=== PATIENT | male | born 1960 | race American Indian/Alaskan Native ===

== ENCOUNTER 2018-03-31 13:23 | Emergency (ER) | payer OTHER ==
[2018-03-31] MEDS ORDERED: XYLOCAINE 1% 20 mL INFILTRATI ONE (13:49)
[2018-03-31] MEDS ORDERED: BOOSTRIX IM ONE (13:53)
[2018-03-31] MEDS ORDERED: NORCO 5/325 PO ONE (13:53)
[2018-03-31] MEDS ORDERED: NACL 0.9% 500 ML IR ONE (14:42)
[2018-03-31] MEDS ORDERED: XYLOCAINE 1%/ EPI 1:100,000 INFILTRATI ONE (15:21)
--- NOTE | 2018-03-31 15:44 | Emergency Department Report ---
- General Chief Complaint: Wound/Laceration Stated Complaint: LEFT ARM INJURY Time Seen by Provider: 03/31/18 13:49 Source: patient Mode of arrival: Ambulatory Limitations: No Limitations - History of Present Illness Initial Comments: Patient is a 58-year-old Male who is presenting with laceration. Patient was doing a project with his son using a Skil saw and the salt jerked backwards and his son's hand and the patient was behind him. The patient suffered a laceration to the left upper arm just proximal to the elbow on the lateral edge. Patient has 8 out of 10 pain stasis stinging burning pain in this area. Patient has not injuries at this time. - Related Data Previous Rx's Medication Instructions Recorded Last Taken Type Clindamycin [Clindamycin CAP] 300 mg PO Q8H 7 Days cap 03/31/18 Unknown Rx HYDROcodone/APAP 5-325 [[place] 1 each PO Q6HR PRN #15 tablet 03/31/18 Unknown Rx 5/325] Ibuprofen [Motrin] 800 mg PO Q8HR PRN #20 tablet 03/31/18 Unknown Rx Allergies Allergy/AdvReac Type Severity Reaction Status Date / Time No Known Allergies Allergy Unverified 03/31/18 13:25 ED Review of Systems ROS: Stated complaint: LEFT ARM INJURY Other details as noted in HPI Comment: All other systems reviewed and negative ED Past Medical Hx - Past Medical History Previous Medical History?: Yes Additional medical history: THYROID - Surgical History Hx Appendectomy: Yes - Social History Smoking Status: Never Smoker Substance Use Type: None - Medications Home Medications: Home Medications Medication Instructions Recorded Confirmed Last Taken Type Clindamycin [Clindamycin CAP] 300 mg PO Q8H 7 Days cap 03/31/18 Unknown Rx HYDROcodone/APAP 5-325 [[place] 1 each PO Q6HR PRN #15 tablet 03/31/18 Unknown Rx 5/325] Ibuprofen [Motrin] 800 mg PO Q8HR PRN #20 tablet 03/31/18 Unknown Rx ED Physical Exam - General Limitations: No Limitations General appearance: alert, in no apparent distress - Head Head exam: Present: atraumatic, normocephalic - Eye Eye exam: Present: normal appearance - ENT ENT exam: Present: mucous membranes moist - Neck Neck exam: Present: normal inspection - Respiratory Respiratory exam: Present: normal lung sounds bilaterally. Absent: respiratory distress - Cardiovascular Cardiovascular Exam: Present: regular rate, normal rhythm. Absent: systolic murmur, diastolic murmur, rubs, gallop - GI/Abdominal GI/Abdominal exam: Present: soft, normal bowel sounds - Rectal Rectal exam: Present: deferred - Extremities Exam Extremities exam: Present: normal inspection, other (patient has a 8 cm laceration on the lateral distal upper arm that is approximately 1 cm deep.) - Back Exam Back exam: Present: normal inspection - Neurological Exam Neurological exam: Present: alert, oriented X3 - Psychiatric Psychiatric exam: Present: normal affect, normal mood - Skin Skin exam: Present: warm, dry, intact, normal color. Absent: rash ED Course Vital Signs 03/31/18 03/31/18 03/31/18 13:26 13:28 13:37 Temperature 97.7 F Pulse Rate 87 Respiratory 20 Rate Blood Pressure 173/108 O2 Sat by Pulse 98 98 96 Oximetry 03/31/18 03/31/18 03/31/18 13:45 14:00 14:15 Temperature Pulse Rate Respiratory Rate Blood Pressure 129/97 136/97 134/100 O2 Sat by Pulse 97 98 98 Oximetry - Laceration /Wound Repair Left Upper Lateral Arm Wound Location: upper extremity Wound Length (cm): 8 Wound's Depth, Shape: irregular Wound Explored: clean Irrigated w/ Saline (ccs): 500 Betadine Prep?: Yes Anesthesia: Lidocaine w/ Epi Volume Anesthetic (ccs): 20 Wound Repaired With: sutures Suture Size/Type: 3:0, proline Number of Sutures: 15 Layer Closure?: No Sterile Dressing Applied?: Yes Critical care attestation.: If time is entered above; I have spent that time in minutes in the direct care of this critically ill patient, excluding procedure time. ED Disposition Clinical Impression: Laceration Disposition: DC-01 TO HOME OR SELFCARE Is pt being admited?: No Does the pt Need Aspirin: No Condition: Stable Instructions: Suture Care (ED), Laceration (ED) Additional Instructions: His sutures should be removed in 7-10 days. Please avoid peroxide. Please keep a thin layer of Neosporin or your wound at all times. Please clean with soap and water. Referrals: PRIMARY CARE, [Primary Care Provider] - 3-5 Days
[2018-03-31 16:05] VITALS: BP 134/94
== END 2018-03-31 16:21 | disposition home or self-care (01) ==
LOC: ED 13:23
DX: S41.112A Laceration without foreign body of left upper arm, initial encounter (principal); X58.XXXA Exposure to other specified factors, initial encounter; Y93.89 Activity, other specified; Y92.89 Other specified places as the place of occurrence of the external cause; Y99.8 Other external cause status
CPT/HCPCS: 90471; 90715; 99282

== ENCOUNTER 2018-04-09 16:51 | Emergency (ER) | payer OTHER ==
[2018-04-09 16:57] VITALS: BP 139/92
--- NOTE | 2018-04-09 17:25 | Emergency Department Report ---
Suture/Staple Removal - HPI Chief Complaint: Laceration/Recheck/Suture Stated Complaint: SUTURE REMOVAL Time Seen by Provider: 04/09/18 17:17 When Sutures or Ash Placed: 8-10 Days Ago Wound Location: left lateral forearm ED Review of Systems ROS: Stated complaint: SUTURE REMOVAL Other details as noted in HPI Constitutional: denies: chills, fever Respiratory: denies: cough, shortness of breath, wheezing Cardiovascular: denies: chest pain, palpitations Gastrointestinal: denies: abdominal pain, nausea, diarrhea Skin: lesions (suture laceration to the left lateral forearm). denies: rash Neurological: denies: headache, weakness, numbness, paresthesias Psychiatric: denies: anxiety, depression ED Past Medical Hx - Past Medical History Previous Medical History?: Yes Additional medical history: THYROID , left arm lac - Surgical History Past Surgical History?: Yes Hx Appendectomy: Yes - Social History Smoking Status: Never Smoker Substance Use Type: Prescribed - Medications Home Medications: Home Medications Medication Instructions Recorded Confirmed Last Taken Type Clindamycin [Clindamycin CAP] 300 mg PO Q8H 7 Days cap 03/31/18 Unknown Rx HYDROcodone/APAP 5-325 [[place] 1 each PO Q6HR PRN #15 tablet 03/31/18 Unknown Rx 5/325] Ibuprofen [Motrin] 800 mg PO Q8HR PRN #20 tablet 03/31/18 Unknown Rx Suture Removal Exam - Exam General: Vital signs noted. No distress. Alert and acting appropriately. Wound: No Pathologic Erythema, No Tenderness, No Drainage, No Pus, No Wound Dehiscence Other Systems: All other systems reviewed and are unremarkable. ED Course Vital Signs 04/09/18 16:54 Temperature 97.8 F Pulse Rate 69 Respiratory 20 Rate Blood Pressure 139/92 O2 Sat by Pulse 98 Oximetry ED Recheck MDM - Differential Diagnosis Wound Recheck, Suture/Staple Removal Critical care attestation.: If time is entered above; I have spent that time in minutes in the direct care of this critically ill patient, excluding procedure time. ED Disposition Clinical Impression: Visit for suture removal, Laceration Disposition: - TO HOME OR SELFCARE Is pt being admited?: No Does the pt Need Aspirin: No Condition: Stable Instructions: Laceration (ED), Wound Healing and Your Diet (ED) Additional Instructions: Follow up with Primary Care Provider in 2-3 days. Apply thin layer of triple antibiotic ointment to wound twice a day. Return to ER if red, swollen, foul discharge, or fever. Referrals: [facility] [Other] - 3-5 Days Time of Disposition: 17:23 Print Language: LIBYAN
== END 2018-04-09 17:36 | disposition home or self-care (01) ==
LOC: ED 16:51
DX: S51.812D Laceration without foreign body of left forearm, subsequent encounter (principal)